=== PATIENT | female | born 1975 | race Two or more races ===

== ENCOUNTER 2016-10-11 07:29 | Day surgery (SDC) | payer OTHER ==
[2016-10-09 17:27] VITALS: BMI 61.5
[2016-10-11] MEDS ORDERED: LIDOCAINE HCL 1%, 10 MG/ML (20ML VIAL) ONE ×2 (07:48→09:25)
[2016-10-11] MEDS ORDERED: BUPIVACAINE HCL/PF 0.5% (5MG/ML) 10 ML VIAL ONE ×2 (07:48→09:25)
--- NOTE | 2016-10-11 08:58 | HP ---
Satellite [facility] - Chief Complaint Chief Complaint: right hand and elbow numbness - Past Medical History Allergies/Adverse Reactions: Allergies Allergy/AdvReac Type Severity Reaction Status Date / Time mushroom Allergy Severe Difficulty Verified 10/09/16 17:27 Breathing Sulfa (Sulfonamide Allergy Hives Verified 10/09/16 17:27 Antibiotics) ...LMP: 09/11/16 - Current Medications Current Medications: Home Medications Medication Instructions Recorded Cholecalciferol (Vitamin D3) 5,000 unit PO DAILY 10/09/16 [Vitamin D3] Metformin HCl 500 mg PO TID 10/09/16 Multivitamins [Multivit ([facility] 1 tab PO DAILY 10/09/16 Formulary)] Hydrocodone/Acetaminophen [[place] 1 each PO Q6H PRN #40 tablet MDD 4 10/11/16 5-325 Tablet] Satellite Physical Exam - Physical Examination Vital Signs: Vital Signs Period Temp Pulse Resp BP Sys/Oneill Pulse Ox Last 24 Hr 98.0 F 81 20 120/78 98 General Appearance: Well Nourished, Well Developed, Alert & Oriented x3 ENT: Clear Lung: Normal air movement Heart: Regular rate & rhythm Extremities: Other (right elbow- + tinels, EMG + cubital tunnel syndrome right hand- + tinels, + phalens, EMG +cts) Neurological: Intact, Alert, Oriented Satellite Impression/Plan - Impression/Plan Impression: right cubital and carpal tunnel syndrome Operative Procedure: right elbow ulna nerve transposition, right CTR Date to be Performed: 10/11/16
[2016-10-11] MEDS ORDERED: PROPOFOL 20 ML ONE ×2 (09:24)
[2016-10-11] MEDS ORDERED: ceFAZolin SODIUM 1 GM VIAL ONE (09:24)
[2016-10-11] MEDS ORDERED: MIDAZOLAM HCL 2 MG/2 ML SINGLE DOSE VIAL ONE (09:24)
[2016-10-11] MEDS ORDERED: ceFAZolin SODIUM 1 GM VIAL IVPB ONE (09:42)
[2016-10-11] MEDS ORDERED: KETOROLAC TROMETHAMINE 30 MG/1 ML VIAL ONE (09:46)
[2016-10-11] MEDS ORDERED: BUPIVACAINE HCL/PF (5 MG/ML) 30 ML VIAL IJ ONE (09:50)
[2016-10-11] MEDS ORDERED: LIDOCAINE HCL 1%, 10 MG/ML (50 mL VIAL) IJ ONE ×2 (09:50)
[2016-10-11] MEDS ORDERED: BUPIVACAINE HCL/PF 0.5% (5MG/ML) 10 ML VIAL IJ ONE (09:50)
[2016-10-11] MEDS ORDERED: oxyCODONE HCL 5 MG TABLET PO PRN (10:05)
[2016-10-11] MEDS ORDERED: ONDANSETRON 4 MG/2 ML VIAL IVPUSH PRN (10:05)
[2016-10-11] MEDS ORDERED: ACETAMINOPHEN 1000 MG/100 ML VIAL (NON FORMULARY) IVPB PRN (10:07)
[2016-10-11] MEDS ORDERED: LACTATED RINGERS SOLUTION 1,000 ML IV SCH (10:15)
--- NOTE | 2016-10-11 11:08 | OP ---
Operative Note - Note: Operative Date: 10/11/16 Pre-Operative Diagnosis: right cubital tunnel syndrome, and CTS Operation: right subcutaneous ulnar verve transposition, CTR, tenosynovectomy Post-Operative Diagnosis: Same as Pre-op Surgeon: Alonso Umana Hand Leather Trimmer: Raymond Yarbrough Anesthesiologist/SUPERVISOR [employer]: Juliana Harmon Anesthesia: General, Local Specimens Removed: tenosynovium right carpal tunnel Estimated Blood Loss (mls): 15 Drains, Volume Out (mls): 0 Blood Volume Replaced (mls): 0 Fluid Volume Replaced (mls): 700 Operative Report Dictated: Yes
[2016-10-11] MEDS ORDERED: ACETAMINOPHEN INJECTION 100 ML IVPB ONE (11:09)
[2016-10-11 11:34] VITALS: TEMP 98.4
[2016-10-11] MEDS ORDERED: HYDROmorphone HCL CARPU-JECT 1 MG/1 ML DISP.SYRIN IVPUSH PRN (12:13)
[2016-10-11] MEDS ORDERED: oxyCODONE HCL 5 MG TABLET ONE (13:00)
--- NOTE | 2016-10-11 13:06 | SPEC ---
DATE OF OPERATION: 10/11/2016 PREOPERATIVE DIAGNOSIS: Right carpal tunnel syndrome and cubital tunnel syndrome. POSTOPERATIVE DIAGNOSIS: Right carpal tunnel syndrome and cubital tunnel syndrome. PROCEDURE: Right subcutaneous ulnar nerve transposition, right carpal tunnel release, and tenosynovectomy. SURGEON: Alonso Umana MD ASSISTANTS: Brian Torres MD. ANESTHESIOLOGIST: Juliana Harmon MD ANESTHESIA: LMA anesthesia, local injection of 20 mL of 0.5% Marcaine and 1% lidocaine mixed. DRAINS: None. COMPLICATIONS: None. SPECIMEN: Tenosynovium, right wrist. BLOOS LOSS: Minimal, 15 mL. FLUID REPLACEMENT: 1000 mL. INDICATIONS: This patient is a 41-year-old female with a preoperative diagnosis of severe right carpal tunnel syndrome and cubital tunnel syndrome. After understanding the potential risks, complications, alternatives, and benefits of surgery versus nonsurgical treatment, the patient elected to undergo this procedure. DESCRIPTION OF PROCEDURE: The patient was brought to the operating room, peripheral IV placed and intravenous sedation was given. LMA anesthesia was induced. Ample was placed on the right arm. A tourniquet was applied. The right upper extremity was then prepped and draped in sterile fashion. Two incisions were marked out with a marking pen, one over the right carpal tunnel, one over the medial aspect of the elbow over the right cubital tunnel. Then, 10 mL of 0.5% Marcaine and 1% lidocaine mix was then injected in and around each of the surgical incisions. The area was then elevated, exsanguinated with an Esmarch bandage and the tourniquet inflated to 275 mm of mercury. A No. 15 scalpel blade was utilized to cut down through the skin. Subcutaneous hemostasis was achieved with the bipolar cautery. Dissection was done through the superficial palmar fascia. Self-retaining retractors were placed into the wound. Under direct visualization, the transverse carpal ligament was transected with a No. 15 scalpel blade, exposing the median nerve and the contents of the carpal tunnel. The distal and proximal extents of the release were completed with a Littler scissor and checked with irrigation and my small finger. They were seen to be complete. Limited dissection was done on the radial side of the median nerve and more extensive dissection was done on the ulnar side of the median nerve. The patients nerve was seen to be quite compressed by epineurium and therefore a limited epineurotomy was performed. A Ragnell retractor was used to gently retract the median nerve in a radial direction. The patient had a lot of tenosynovitis and therefore a limited tenosynovectomy was performed off multiple flexor tendons, at least three. This was passed off the field as tenosynovium right wrist. The floor of the carpal tunnel was checked. There were no abnormal masses or ganglion cysts. The area was copiously irrigated and washed out and closure begun. Undyed 4-0 Vicryl was used to close the deep dermal layer. Final skin reapproximation was done with horizontal mattress 4-0 nylon sutures. The area was then washed and dried, covered with Xeroform, 4x4s, fluffs between the fingers, Webril and a 4-inch plaster roll was utilized to make a volar splint, which was then wrapped with Arminda and Coban. The tourniquet was taken down after a total tourniquet time of 15 minutes. There were no complications during the case. The patient tolerated the procedure well. Next, we made an incision over the medial aspect of the elbow with a No. 15 scalpel blade. Subcutaneous hemostasis was achieved with bipolar cautery. Dissection done through the adipose layer to the medial epicondyle. Medial, anterior, and posterior flaps were raised. Hemostasis was achieved with a bipolar cautery. There was a wide adipose layer, and therefore the subcutaneous transposition would be quite adequate. A small portion of the medial intramuscular septum was incised, so, there was no point of impingement. The two heads of the SCU were all opened, so there was no point of impingement on that fascia, as well. Next, we located the cubital tunnel, we located the ulnar nerve distally. Circumferential dissection was done. I put a Manas drain around the ulnar nerve for both protection and identification. It was protected throughout the entire case. Next, I was able to locate the cubital tunnel, open up Osbornes ligament in the roof of the cubital tunnel also taking great care to protect the ulnar nerve. I then completed the release more proximally both with my [place] elevator and my index finger. Additional hemostasis was required. Once this was done, we were able to transpose the ulnar nerve anterior to the medial epicondyle and the medial axis of rotation of the elbow. There were no other points of compression. I followed it along its entire course. The area was copiously irrigated and washed out. Next, using 0 Vicryl after transposing the nerve, I tacked down the adipose layer to fat on the posterior flap as well as the tissue on the medial epicondyle, holding the ulnar nerve in its new position. I moved the elbow. There was no point to compression. I was able to see it and feel it. The ulnar nerve was kept in its new position with a lot of soft tissue insulation around it. Next, I closed the deep adipose layer with 0 Vicryl. The 4-0 undyed Vicryl was used to close the deep dermal layer. Final skin reapproximation was done with a running subcuticular 4-0 Biosyn stitch. The area was then washed and dried, covered with Steri-Strips, 4x4s over the carpal tunnel incision, fluffs between fingers, and Webril was placed around the entire right arm. A posterior 6-inch Ortho-Glass splint was then applied with the elbow at 90 degrees, the forearm in neutral, the wrist in neutral, and this was wrapped with Arminda and two Aly bandages. . The tourniquet was taken down after a total tourniquet time of 65 minutes. There were no complications during the case. The patient tolerated the procedure well and was brought to the ambulatory recovery room in stable condition. BRIAN TORRES M.D. [id number]
[2016-10-11 15:28] VITALS: BP 134/74; PULSE 65
--- NOTE | 2016-10-12 14:24 | PATH ---
Surgical Pathology Report Patient Name: FRANCE RODGERS [facility]. Rec. #: [id number] /Age/Gender: 1975 (Age: 41) / F Account: [id number] Location: [facility] Taken: 10/11/2016 Received: 10/11/2016 Reported: 10/12/2016 Physicians: Raymond Yarbrough M.D. Specimen(s) Received TENOSYNOVIUM RIGHT WRIST Clinical History Carpal tunnel syndrome right Final Diagnosis SOFT TISSUE, RIGHT WRIST, TENOSYNOVIUM, CARPAL TUNNEL RELEASE: BENIGN TENOSYNOVIAL FIBROCONNECTIVE TISSUE WITH MYXOID DEGENERATION. Electronically Signed Jadiel Alexander M.D. Gross Description Received in formalin labeled "tenosynovium right wrist" is a 1.5 x 1.4 x 0.3 cm aggregate of cote-yellow, irregular portions of soft tissue. The specimen is entirely submitted in one cassette. /10/11/201610/11/2016
== END 2016-10-11 14:10 | disposition home or self-care (01) ==
LOC: JASU-SURG 07:29
PROVIDERS: ATTEND Orthopaedic Surgery
PROC: 0LB50ZZ Excision of Right Lower Arm and Wrist Tendon, Open Approach (ICD-10-PCS; 2016-10-11)
PROC: 01N50ZZ Release Median Nerve, Open Approach (ICD-10-PCS; principal; 2016-10-11 09:00)
PROC: 01N50ZZ Release Median Nerve, Open Approach (ICD-10-PCS; 2016-10-11 09:00)
DX: G56.01 Carpal tunnel syndrome, right upper limb (principal); G56.21 Lesion of ulnar nerve, right upper limb
CPT/HCPCS: 84703; 88304-TC; 94760

== ENCOUNTER 2016-11-04 13:00 | Emergency (ER) | payer OTHER ==
[2016-11-04 13:05] VITALS: BP 144/79; PULSE 88; TEMP 98.4; BMI 61.7
--- NOTE | 2016-11-04 13:33 | PDOC ---
Suture Removal/Wound Check HPI - History of Present Illness Chief Complaint: Laceration Stated Complaint: RT HAND LACERATION Time Seen by Provider: 11/04/16 13:12 History Source: Yes: Patient Exam Limitations: Yes: No Limitations Treated at: [facility] ED - Previous ED Treatment Type of procedure performed on last visit: Yes: Laceration Repair Tetanus Immunization: Yes: Up to Date - Onset of Previous Treatment Comment:: 11/04/16 13:37 She came for evaluation of carpal tunnel wound. States sutures were removed last week by Dr. Varela status post carpal tunnel surgery, and wound immediately dehisced. Since that time has been cleaning with peroxide, and Steri -Strips daily but today woke up and had large amount of bleeding from wound site. Patient denies numbness or tingling to fingers, admits to not resting and warming multiple daily activities against instruction as is right handed and is return to work. Past History - Travel Traveled outside of the country in the last 30 days: No Close contact w/someone who was outside of country & ill: No - Past Medical History Allergies/Adverse Reactions: Allergies mushroom Allergy (Severe, Verified 11/04/16 13:05) Difficulty Breathing Sulfa (Sulfonamide Antibiotics) Allergy (Verified 11/04/16 13:05) Hives Home Medications: Ambulatory Orders Cholecalciferol (Vitamin D3) [Vitamin D3] 5,000 unit PO DAILY 10/09/16 Metformin HCl 500 mg PO TID 10/09/16 Multivitamins [Multivit ([facility] Formulary)] 1 tab PO DAILY 10/09/16 General: Yes: no pertinent history Surgical History: Yes: Other (recent Carpal tunnel surgury - Dr Varela ) - Social History Smoking Status: Never smoked Suture Removal/Wound Check PE - Physical Exam Laceration/Wound Check Symptoms: reports: None Current Severity Level: None Maximum Severity Level: None Comments: 11/04/16 13:42 wound to vargas aspect of left hand dehisced. Has intact Steri-Strips, and there is no edges with erythema, purulent drainage, swelling, or excessive pain. No evidence of cellulitis. Patient has range of motion of fingers but is tender. Pain Radiation: None *Review of Systems - Review of Systems Able to Perform ROS?: No Constitutional: Yes: See HPI. No: Symptoms Reported, Chills, Fever HEENTM: No: Symptoms Reported Musculoskeletal: Yes: Symptoms Reported, See HPI, Joint Pain, Joint Swelling Integumentary: Yes: Symptoms Reported, See HPI, Other (dehiscence of right plam wound ) Neurological: Yes: See HPI. No: Symptoms reported Medical Decision Making - Medical Decision Making 11/04/16 13:36 Wound dehiscence without obvious signs of infection or cellulitis. Encouraged to continue cleaning and dressing and follow-up with Dr. Varela this week for definitive evaluation and care 11/04/16 13:43 *DC/Admit/Observation/Transfer Diagnosis at time of Disposition: Visit for wound check - Discharge Dispostion Disposition: HOME Condition at time of disposition: Stable Admit: No - Patient Instructions Printed Discharge Instructions: DI for Wound Dehiscence Additional Instructions: Continue to clean with hydrogen peroxide as directed, Call and see Dr. Varela this week For wound check - Post Discharge Activity Work/School Note: Back to Work
== END 2016-11-04 13:34 | disposition home or self-care (01) ==
LOC: JERFT 13:00
DX: T81.31XA Disruption of external operation (surgical) wound, not elsewhere classified, initial encounter (principal)
CPT/HCPCS: 99281-25

== ENCOUNTER → 2022-04-14 | Day surgery (SDC) | payer OTHER ==
[2022-04-12 15:47] VITALS: BMI 59.3
[~2022-04-14] MED LIST: BUPIVACAINE HCL/PF 0.5% (5 MG/ML) 30 ML VIAL IJ ONE; BUPIVACAINE HCL/PF 0.5% (5MG/ML) 10 ML VIAL ONE; DEXAMETHASONE SOD PHOSPHATE 4 MG/1 ML VIAL ONE; LACTATED RINGERS SOLUTION 1,000 ML IV SCH; LIDOCAINE 2%/EPINEPHRINE 1:100000 (50 ML MD VIAL) INF ONE; MIDAZOLAM HCL 2 MG/2 ML SINGLE DOSE VIAL ONE; ONDANSETRON 4 MG/2 ML VIAL IVPUSH PRN; ONDANSETRON 4 MG/2 ML VIAL ONE; PROPOFOL 20 ML ONE; SUCCINYLCHOLINE CHLORIDE 200 MG/10 ML SYRINGE ONE; ceFAZolin SODIUM 1 GM VIAL IVPB ONE; ceFAZolin SODIUM 1 GM VIAL ONE; oxyCODONE HCL 5 MG TABLET ONE; oxyCODONE HCL 5 MG TABLET PO PRN
[2022-04-14 12:57] VITALS: RESP 18
[2022-04-14 13:44] VITALS: BP 114/68; PULSE 81; TEMP 98.2
== END | disposition home or self-care (01) ==
LOC: JASU-SURG 04:22
PROVIDERS: ATTEND Orthopaedic Surgery
PROC: 0SBD4ZZ Excision of Left Knee Joint, Percutaneous Endoscopic Approach (ICD-10-PCS; principal; 2022-04-14 08:00)
DX: S83.272A Complex tear of lateral meniscus, current injury, left knee, initial encounter (principal); M23.92 Unspecified internal derangement of left knee; M76.892 Other specified enthesopathies of left lower limb, excluding foot; X58.XXXA Exposure to other specified factors, initial encounter; Y93.9 Activity, unspecified; Y92.9 Unspecified place or not applicable; Y99.9 Unspecified external cause status
CPT/HCPCS: 81025; 82962; 94760